=== PATIENT | male | born 1945 | race African-American/Black ===

== ENCOUNTER 2017-12-27 01:36 | Emergency (ER) | payer OTHER | END 2017-12-27 03:18 | LOC: EME 01:36 | PROC: 5A12012 Performance of Cardiac Output, Single, Manual (ICD-10-PCS; principal; 2017-12-27) | DX: I46.9 Cardiac arrest, cause unspecified (principal); N18.9 Chronic kidney disease, unspecified | CPT/HCPCS: 99281; 99285 ==